=== PATIENT | female | born 1985 | race Caucasian/White ===

== ENCOUNTER → 2016-11-11 | Outpatient (CLI) | payer OTHER ==
[~2016-11-11] MED LIST: ACHD5005 PO; CYCL10TA9 PO; HYDR-3714 PO; VILA40TA PO
--- NOTE | 2016-11-11 20:32 | Diagnostic Imaging Report ---
EXAMINATION: Bilateral breast ultrasound. INDICATION: Bilateral breast masses. FINDINGS: By history, the patient has a lump in the lateral aspect of the right retroareolar region and in the upper-outer quadrant of the left breast. The diagnostic mammogram performed earlier today failed to show any sign of malignancy in either of these regions. On this exam, there is no discrete solid or cystic mass evident within the areas of concern. It may be that the palpable abnormalities in question relate to fibroglandular tissue alone. However, if clinical concern regarding an underlying abnormality persists, then biopsy should still be considered. IMPRESSION: There is no evidence of malignancy. Clinical followup is recommended. ACR BI-RADS Category 1: Negative. Dictated by: Dictated on workstation # [id number]
--- NOTE | 2016-11-12 19:30 | Diagnostic Imaging Report ---
Digital mammogram bilateral diagnostic. INDICATION: Breast lumps. The current study was also evaluated with a Computer Aided Detection (CAD) system. FINDINGS: This is the patient's baseline study. At this time, she does complain of a lump in the lateral retroareolar region of the right breast in the upper-outer quadrant of the left breast. Markers were placed over the areas of concern. There is no primary or secondary sign of malignancy noted. However, the fibroglandular tissue in both breasts is extremely dense and could mask a lesion. I would recommend that ultrasound of both breasts be performed for further study. There is no primary or secondary sign of malignancy noted otherwise. IMPRESSION: There is no evidence of malignancy. Ultrasound of both breasts would be recommended for further study, however. ACR BI-RADS Category 0: Incomplete. (Needs additional imaging evaluation). Result letter will be mailed to the patient. Note: At least 10% of breast cancer is not imaged by mammography. Dictated by: Dictated on workstation # [id number]
== END ==
LOC: RAD 09:04
PROVIDERS: ATTEND Nurse Practitioner Family
DX: N63 Unspecified lump in breast (principal)
CPT/HCPCS: 76642; 77066